=== PATIENT | female | born 1965 | race Caucasian/White ===

== ENCOUNTER 2017-05-21 10:01 | Outpatient (CLI) | payer OTHER ==
--- NOTE | 2017-05-23 12:40 | Mammography Report ---
DIGITAL BILATERAL SCREENING MAMMOGRAM: 05/21/2017 COMPARISON STUDY: Mammogram 04/24/2016. TECHNIQUE: Routine CC and MLO projections were obtained of the breasts. FINDINGS: Scattered fibroglandular tissue is present within the breasts. There are no dominant rahul s, suspicious microcalcifications, or secondary signs of malignancy. In comparison to the previous st udies, there are no significant changes. ASSESSMENT: NO MAMMOGRAPHIC EVIDENCE OF MALIGNANCY. NO SIGNIFICANT INTERVAL CHANGES. RECOMMENDATION: Screening mammography is recommended annually. BIRADS category 1 - negative. STANDARD QUALIFYING STATEMENTS 1. This examination was reviewed with the aid of Computed-Aided Detection (CAD). 2. A negative or benign imaging report should not delay biopsy if clinically suspicious findings are present. Consider surgical consultation if warranted. More than 5% of cancers are not identified by i maging. 3. Dense breasts may obscure an underlying neoplasm. JOB #: [id number] EXT JOB #:[id number]
== END 2017-05-21 10:02 | disposition home or self-care (01) ==
LOC: DI.N 10:01
PROVIDERS: ATTEND Family Medicine
DX: Z12.31 Encounter for screening mammogram for malignant neoplasm of breast (principal)
CPT/HCPCS: 77067

== ENCOUNTER 2017-06-18 15:24 | Outpatient (CLI) | payer BC, OTHER | END 2017-06-18 15:25 | disposition home or self-care (01) | LOC: SC 15:24 | PROVIDERS: ATTEND Nurse Practitioner Family | DX: G47.10 Hypersomnia, unspecified (principal); G47.8 Other sleep disorders; R06.83 Snoring | CPT/HCPCS: 99203; 99212 ==

== ENCOUNTER 2017-12-17 17:02 | Outpatient (CLI) | payer BC ==
--- NOTE | 2017-12-18 11:25 | Ultrasound Report ---
PELVIC ULTRASOUND: 12/17/2017 CLINICAL INDICATION: Pelvic pain. TECHNIQUE: Transabdominal pelvic ultrasound performed for global evaluation. Transvaginal pelvic ultrasound performed for detailed evaluation. Real-time scanning performed and static images obtained. FINDINGS: The uterus is anteverted, measuring 11.2 x 4.5 x 2.9 cm. The endometrium measures 3 mm. No focal myometrial lesion is appreciated. The right ovary measures 2.1 x 1.4 x 0.9 cm, and the left ovary measures 2.5 x 1.7 x 1.2 cm. Trace free fluid is present. IMPRESSION: NO EVIDENCE OF FOCAL MYOMETRIAL LESION OR ADNEXAL MASS. TRACE FREE FLUID. TD: 12/18/2017 11:10
== END 2017-12-17 17:03 | disposition home or self-care (01) ==
LOC: DI 17:02
PROVIDERS: ATTEND Family Medicine
DX: R10.2 Pelvic and perineal pain (principal)
CPT/HCPCS: 76830; 76856

== ENCOUNTER 2018-12-26 14:56 | Outpatient (CLI) | payer BC ==
--- NOTE | 2018-12-27 11:08 | Mammography Report ---
Reason: SCREENING MAMMO Procedure Date: 12/26/2018 Accession Number: [id number] / [id number] Procedure: MGN - Screening Mammo Dig Bilat CPT Code: FULL RESULT: EXAM: Screening Mammo Dig Bilat DATE: 12/26/2018 3:23 PM CLINICAL HISTORY: Routine screening TECHNIQUE: (B) - Bilateral CC and MLO views were obtained. COMPARISON: 05/21/2017, 04/24/2016, 03/11/2014 and 02/27/2013. PARENCHYMAL PATTERN: (A) - The breasts demonstrate scattered fibroglandular densities bilaterally. FINDINGS: No significant interval change. Asymmetric left upper outer quadrant density persists similar to priors. There are no new suspicious masses, calcifications, or areas of distortion. IMPRESSION: Negative examination. BI-RADS category 1. RECOMMENDATION: (ANNUAL) - Recommend routine annual screening mammography. BI-RADS CATEGORY: (1) - Negative. STANDARD QUALIFYING STATEMENTS: 1. This examination was not reviewed with the aid of Computer-Aided Detection (CAD). 2. A negative or benign imaging report should not preclude biopsy if clinically suspicious findings are present. 3. Dense breasts may obscure an underlying neoplasm. 4. This examination was reviewed without the aid of 3D breast imaging (tomosynthesis).
== END 2018-12-26 14:57 | disposition home or self-care (01) ==
LOC: DI.N 14:56
DX: Z12.39 Encounter for other screening for malignant neoplasm of breast (principal)
CPT/HCPCS: 77067

== ENCOUNTER 2018-12-31 23:06 | Emergency (ER) | payer BC ==
[2018-12-31 23:14] VITALS: BP 133/79
--- NOTE | 2018-12-31 23:26 | ED Physician Documentation ---
PD HPI UPPER EXT INJURY - Stated complaint Stated Complaint: R THUMB PX - Chief complaint Chief Complaint: Trauma Ext - History obtained from History obtained from: Patient - History of Present Illness Location: Right, Finger (thumb at MCP) Type of injury: Blunt / blow (She was practicing roller [place] and ran into another player and had her thumb jammed her bent with pain at the MCP and a feeling of numbness through her fingers and thumb intermittently. It hurts when she moves her thumb. There is no laceration.) Timing - onset: How many hours ago (2-3), Today Timing - duration: Hours Timing - details: Abrupt onset, Still present Worsened by: Moving, Palpating (at base of thumb dorsally) Similar symptoms before: Has not had sx before Recently seen: Not recently seen Review of Systems Skin: denies: Abrasion (s), Laceration (s) Neurologic: reports: Numbness (tingling in thumb and index finger after the injury and intermittently with movement since.). denies: Focal weakness PD PAST MEDICAL HISTORY - Past Medical History Past Medical History: No Musculoskeletal: None - Past Surgical History Past Surgical History: Yes /[employer]: section - Present Medications Home Medications: Ambulatory Orders Medication Instructions Recorded Confirmed Estrogen,Con/M-Progest Acet 1 tab PO DAILY 12/31/18 12/31/18 [Prempro 0.45-1.5 mg Tablet] - Allergies Allergies/Adverse Reactions: Allergies Allergy/AdvReac Type Severity Reaction Status Date / Time No Known Drug Allergies Allergy Verified 12/31/18 23:14 - Social History Does the pt smoke?: Yes Smoking Status: Current every day smoker Does the pt drink ETOH?: Yes Does the pt have substance abuse?: No PD ED PE NORMAL - Vitals Vital signs reviewed: Yes - General General: Alert and oriented X 3, No acute distress, Well developed/nourished - Derm Derm: Normal color, Warm and dry - Extremities Extremities: Other (The base of the right thumb has some tenderness along the dorsal aspect. There is some slight swelling. There is no obvious deformity. There is not particular tenderness at the UCL area. Distraction testing at the base of the thumb does not cause pain. She is able to make an okay sign opposing the index finger and can hold it strongly. There is good color and capillary refill in the thumb and index finger. There is sensation to touch at this time.) - Neuro Neuro: No motor deficit, No sensory deficit Results - Vitals Vitals: Vital Signs - 24 hr 12/31/18 23:08 Temperature 36.8 C Heart Rate 71 Respiratory 16 Rate Blood Pressure 133/79 H O2 Saturation 96 Oxygen O2 Source Room air - Rads (name of study) right hand Radiology: Prelim report reviewed (normal hand xray), EMP read contemporaneously (Some mild arthritic spurring at the base of the thumb. No fractures seen.), See rad report PD MEDICAL DECISION MAKING - ED course Complexity details: reviewed results, considered differential, d/w patient Departure - Departure Disposition: Home, Self Care Clinical Impression: Sprain of right thumb Qualifiers: Encounter type: initial encounter Sprain of finger site: metacarpophalangeal joint Qualified Code(s): S63.641A - Sprain of metacarpophalangeal joint of right thumb, initial encounter Condition: Stable Record reviewed to determine appropriate education?: Yes Instructions: ED Sprain Finger Follow-Up: Walker Stafford MD [Primary Care Provider] - Comments: Ibuprofen or naproxen 2-3 times a day for pain and inflammation. Add Tylenol if needed for pain. Use of thumb splint when active for the next several days to a week to protect the thumb as its healing. You may want to asleep with that and wear it all the time for the first 2 to 3 days to reduce swelling and pain. Ice it often tonight and tomorrow. Recheck if not better over the next 1 to 2 weeks. Discharge Date/Time: 01/01/19 00:10
--- NOTE | 2018-12-31 23:57 | XRAY Report ---
Reason: thumb injury/hyperext, while rollber [place] Procedure Date: 12/31/2018 Accession Number: [id number] / [id number] Procedure: XR - Hand 3 View RT CPT Code: FULL RESULT: EXAM: RIGHT HAND RADIOGRAPHY EXAM DATE: 12/31/2018 11:38 PM. CLINICAL HISTORY: Thumb injury/hyperextended, while roller[place]. COMPARISON: None. TECHNIQUE: 3 views. FINDINGS: Bones: Normal. No fractures or bone lesions. Joints: Normal. No subluxations. Soft Tissues: Normal. No soft tissue swelling. IMPRESSION: Normal hand radiography. RADIA
== END 2019-01-01 00:10 | disposition home or self-care (01) ==
LOC: ED 23:06
DX: S63.641A Sprain of metacarpophalangeal joint of right thumb, initial encounter (principal); W51.XXXA Accidental striking against or bumped into by another person, initial encounter; Y93.69 Activity, other involving other sports and athletics played as a team or group; Y92.331 Roller skating rink as the place of occurrence of the external cause; F17.200 Nicotine dependence, unspecified, uncomplicated
CPT/HCPCS: 99282; 99283

== ENCOUNTER 2020-09-22 08:32 | Outpatient (CLI) | payer OTHER ==
--- NOTE | 2020-09-28 14:31 | Mammography Report ---
BILATERAL DIGITAL SCREENING MAMMOGRAM 3D/2D: 09/22/2020 CLINICAL: Routine screening. Routine screening. Comparison is made to exams dated: 12/26/2018 mammogram, 05/21/2017 mammogram, 04/24/2017 mammogram, ultrasound, and 03/11/2014 mammogram - [facility]. There are scattered fib roglandular elements in both breasts. No significant masses, calcifications, or other findings are seen in either breast. There has been no significant interval change. IMPRESSION: NEGATIVE There is no mammographic evidence of malignancy. A 1 year screening mammogram is recommended. This exam was interpreted at Station ID: [id number]. NOTE: For mammograms, a report in lay terms will be sent to the patient. Approximately 15% of breast malignancies will not be visualized mammographically. In the management of a palpable breast mass, a negative mammogram must not discourage biopsy of a clinically suspicious lesion. Electronically Signed By: Micheal Chopra M.D. [email or web address]:09/28/2020 13:39:34 ACR BI-RADS Category 1: Negative 3341F PARENCHYMAL PATTERN: (A) - The breast(s) demonstrate(s) scattered fibroglandular densities. BI-RADS CATEGORY: (1) - 1 RECOMMENDATION: (ANNUAL) - Recommend routine annual screening mammography. [id number] 1 year screening LATERALITY: (B)
== END 2020-09-22 08:33 | disposition home or self-care (01) ==
LOC: DI.N 08:32
DX: Z12.31 Encounter for screening mammogram for malignant neoplasm of breast (principal)

== ENCOUNTER 2020-10-15 07:57 | Outpatient (CLI) | payer OTHER | END 2020-10-15 07:58 | disposition home or self-care (01) | LOC: DI 07:57 | PROVIDERS: ATTEND Internal Medicine | DX: R55 Syncope and collapse (principal); R94.31 Abnormal electrocardiogram [ECG] [EKG]; I95.9 Hypotension, unspecified | CPT/HCPCS: 93306 ==

== ENCOUNTER 2022-07-13 06:07 | Emergency (ER) | payer OTHER ==
[2022-07-13 06:20] VITALS: BP 117/65
[2022-07-13] MEDS ORDERED: IBUPROFEN 800 MG TABLET PO STA (07:36)
--- NOTE | 2022-07-13 07:39 | ED Physician Documentation ---
History of Present Illness - Stated complaint Stated Complaint: NECK PX - Chief complaint Chief Complaint: General - History obtained from History obtained from: Patient - Additonal information Additional information: The patient comes to the emergency department chief complaint of right sided neck pain and spasm that she woke up With this morning around 4:00. The patient denies any distinct injuries. She states that 4 days ago, she was doing some lifting of rounds of wood in her yard, but did not feel as though she injured herself at that time. She denies any chronic neck issues. She states that every time she tries to turn her head to the right, she feels a sharp pain and stiffness in the muscles just to the right of her spine. No bony pain. The patient denies any pain, numbness, or tingling going down her right arm. No pain in her shoulder or upper back. 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 Review of Systems Ten Systems: 10 systems reviewed and negative Constitutional: reports: Reviewed and negative Eyes: reports: Reviewed and negative Ears: reports: Reviewed and negative Nose: reports: Reviewed and negative Throat: reports: Reviewed and negative Cardiac: reports: Reviewed and negative Respiratory: reports: Reviewed and negative GI: reports: Reviewed and negative : reports: Reviewed and negative Skin: reports: Reviewed and negative Musculoskeletal: reports: Neck pain Neurologic: reports: Reviewed and negative Psychiatric: reports: Reviewed and negative Endocrine: reports: Reviewed and negative Immunocompromised: reports: Reviewed and negative PD PAST MEDICAL HISTORY - Past Medical History Past Medical History: Yes Cardiovascular: None Respiratory: None Neuro: Migraines Endocrine/Autoimmune: None GI: None POULTRY KILLER: Miscarriage(s) : None HEENT: None Psych: None Musculoskeletal: None Derm: None - Past Surgical History Past Surgical History: Yes /POULTRY KILLER: section HEENT: Other - Present Medications Home Medications: Ambulatory Orders Medication Instructions Recorded Confirmed Estrogen,Con/M-Progest Acet 1 tab PO DAILY 12/31/18 07/13/22 [Prempro 0.45-1.5 mg Tablet] Cyclobenzaprine [Flexeril] 10 mg PO TID PRN #20 tablet 07/13/22 HYDROcod/ACETAM 5/325 [Eastpoint 5/325] 1 - 2 tablet PO Q6H PRN #10 tablet 07/13/22 - Allergies Allergies/Adverse Reactions: Allergies Allergy/AdvReac Type Severity Reaction Status Date / Time No Known Drug Allergies Allergy Verified 07/13/22 06:20 - Social History Does the pt smoke?: Yes Smoking Status: Current every day smoker Does the pt drink ETOH?: Yes Does the pt have substance abuse?: No - Immunizations Immunizations are current?: Yes Immunizations: TDAP current <10years PD ED PE NORMAL - Vitals Vital signs reviewed: Yes - General General: Alert and oriented X 3, No acute distress, Well developed/nourished - HEENT HEENT: Atraumatic, PERRL, EOMI, Moist mucous membranes - Neck Neck: Supple, no meningeal sign, No bony TTP, Other (Tenderness palpation right paraspinal musculature, extending to the medial edge of the shoulder ridge along the trapezius. Limited range of motion when turning head to the right.) - Respiratory Respiratory: No respiratory distress - Derm Derm: Normal color, Warm and dry, No rash - Extremities Extremities: No deformity, Normal ROM s pain - Neuro Neuro: Alert and oriented X 3, director risk 2-12 intact, No motor deficit, No sensory deficit, Normal speech - Psych Psych: Normal mood, Normal affect Results - Vitals Vitals: Vital Signs - 24 hr 07/13/22 07/13/22 06:18 06:21 Temperature 36.1 C L Heart Rate 57 L Respiratory 17 17 Rate Blood Pressure 117/65 O2 Saturation 98 Oxygen O2 Source Room air PD MEDICAL DECISION MAKING - ED course Complexity details: considered differential, d/w patient ED course: The patient was given a dose of ibuprofen here. I discussed with her that she has torticollis and that this will resolve on its own. We have discussed symptomatic management at home, including analgesics, muscle relaxers, heat, stretching, and massage. There is no evidence at this point of a more serious condition, and the patient has not had any recent trauma to raise concern for structural compromise of the spinal column. We have discussed the usual indications for return. Departure - Departure Disposition: 01 Home, Self Care Clinical Impression: Torticollis, acute Condition: Stable Instructions: ED Spasm Neck No Injury Prescriptions: Cyclobenzaprine [Flexeril] 10 mg PO TID PRN #20 tablet PRN Reason: Spasms HYDROcod/ACETAM 5/325 [Eastpoint 5/325] 1 - 2 tablet PO Q6H PRN #10 tablet PRN Reason: Pain Comments: Your symptoms are most consistent with a spasm of the musculature adjacent to your spine on the right side. This is a common condition and often comes from positioning during sleep that causes the neck muscles to spasm up. If this becomes a recurrent problem, you can talk to her chiropractor about what pillow configuration might work best for you. You have been given a dose of ibuprofen here in the emergency department and prescriptions for muscle relaxer and pain medication have been electronically transmitted to the [facility] in [place] at your request. In general, this condition is self-limited and will go away on its own usually in 2 or 3 days. The medications can be helpful in speeding up this process, as can be the use of heat, massage, and stretching. Please follow-up with your primary care physician for further concerns in this regard. Forms: Activity restrictions
== END 2022-07-13 07:56 | disposition home or self-care (01) ==
LOC: ED 06:07
DX: M43.6 Torticollis (principal); F17.200 Nicotine dependence, unspecified, uncomplicated
CPT/HCPCS: 99282; 99284; A9270

== ENCOUNTER 2022-08-28 15:07 | Outpatient (CLI) | payer OTHER ==
--- NOTE | 2022-08-28 19:13 | XRAY Report ---
PROCEDURE: Cervical Spine 2 View INDICATIONS: NECK PAIN TECHNIQUE: 3 view(s) of the cervical spine were acquired. COMPARISON: None. FINDINGS: Bones: No fractures or dislocations to the T1 level. The lateral masses of C1 appear intact on the odontoid view. No suspicious bony lesions. Disc space narrowing and anterior aspects noted in the l ower cervical spine. There is straightening of normal cervical lordosis. Craniovertebral relationship s are normal Soft tissues: No prevertebral soft tissue swelling. 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
== END 2022-08-28 15:08 | disposition home or self-care (01) ==
LOC: DI 15:07
PROVIDERS: ATTEND Student in an Organized Health Care Education/Training Program
DX: M50.30 Other cervical disc degeneration, unspecified cervical region (principal); M47.812 Spondylosis without myelopathy or radiculopathy, cervical region